=== PATIENT | female | born 1970 | race Caucasian/White ===

== ENCOUNTER 2018-01-27 11:58 | Day surgery (SDC) | payer OTHER, SELFPAY ==
[2018-01-26 13:18] VITALS: BMI 27.2
--- NOTE | 2018-01-27 14:43 | OP ---
DATE OF PROCEDURE: 01/27/2018 TITLE OF PROCEDURE: Esophagogastroduodenoscopy. PREPROCEDURE DIAGNOSES: 1. History of gastritis. 2. Left-sided abdominal pain. POSTPROCEDURE DIAGNOSES: 1. Examination to second portion of duodenum. 2. Normal esophagogastroduodenoscopy. PROCEDURE IN DETAIL: Written informed consent was obtained. The patient was brought to the endoscop y suite. Total intravenous anesthesia was provided by Dr. Dennis Membreno and associates. The patient was placed in the left lateral decubitus position. A bite block was inserted into the mouth. A Pen tax video diagnostic gastroscope was introduced into the oral cavity and the esophagus was carefully intubated. The gastroscope was advanced under direct visualization to the second portion of the duod enum. Endoscopic findings revealed a normal esophagus, stomach, and duodenum. The retroflexed view of the stomach was also normal. There was no evidence of inflammatory change in any portion of the u pper GI tract that was examined. There was no evidence of ulcer. The stomach was decompressed as th e endoscope was removed from the patient. There were no immediate complications. She was reposition ed for the colonoscopy. RECOMMENDATIONS: 1. Use Nexium 24HR 1 daily as needed for acid indigestion. 2. Low fat diet. 3. Follow up with some Gastroenterology as needed. 4. Proceed with colonoscopy.
--- NOTE | 2018-01-27 15:02 | OP ---
DATE OF PROCEDURE: 01/27/2018 TITLE OF PROCEDURE: Colonoscopy. PREPROCEDURE DIAGNOSES: 1. History of left lower quadrant abdominal pain. 2. Constipation, improved. 3. Symptomatic hemorrhoids. 4. Recently treated diverticulitis. POSTPROCEDURE DIAGNOSES: 1. Exam to cecum; good bowel preparation. 2. Moderately tortuous colon throughout. 3. No polyps identified. 4. Small internal and external hemorrhoids. 5. Otherwise normal colonoscopy. PROCEDURE IN DETAIL: Written informed consent was obtained. Upon completion of the EGD, the patient was repositioned for the colonoscopy. Total intravenous anesthesia was provided by Dr. Membreno and as socimaylin. A digital rectal exam was performed that was remarkable for a small external hemorrhoid. I t was not actively bleeding. A Pentax video colonoscope was inserted through the anal canal and adva nced under direct visualization to the cecum. Position in the cecum was verified by identification o f the ileocecal valve and through transillumination. The quality of the bowel preparation was good. Each colon segment was examined carefully as the colonoscope was withdrawn from the cecum. Vascular pattern and haustral folds appeared normal. The colon was diffusely tortuous, which made completing the procedure somewhat difficult. No polyp or neoplasm was identified. In the rectum, a retroflexe d view demonstrated small internal hemorrhoids that were not actively bleeding. The colon was decomp ressed as the colonoscope was removed from the patient. There were no immediate complications. She was transferred to the day stay surgery area for post-procedure monitoring. RECOMMENDATIONS: 1. High-fiber, low fat diet. Continue prunes and flaxseed daily as she is doing. 2. For hemorrhoids, recommend Sitz bath for 5-10 minutes t.i.d. p.r.n. 3. For hemorrhoids, recommend either Preparation H cream or Analpram-HC cream t.i.d. p.r.n. 4. Repeat colonoscopy for screening purposes in 10 years. 5. Follow up with Gastroenterology as needed.
[2018-01-27] MEDS ORDERED: Propofol 200 MG/20 ML VIAL ONE (15:35)
[2018-01-27] MEDS ORDERED: Lidocaine 1% PF 5 ML VIAL ONE (15:35)
[2018-01-27] MEDS ORDERED: PHENYLEPHRINE-NS 100 MCG/ML 10 ML SYRINGE ONE (15:35)
== END 2018-01-27 15:45 | disposition home or self-care (01) ==
LOC: SDC 11:58
PROVIDERS: ATTEND Internal Medicine Gastroenterology
DX: K64.4 Residual hemorrhoidal skin tags (principal); K64.8 Other hemorrhoids; K59.00 Constipation, unspecified; Z79.899 Other long term (current) drug therapy; Z80.0 Family history of malignant neoplasm of digestive organs; Z98.890 Other specified postprocedural states
CPT/HCPCS: J2001; J2704